=== PATIENT | male | born 1980 | race Caucasian/White ===

== ENCOUNTER 2022-07-09 12:27 | Emergency (ER) | payer MEDICAID ==
[~2022-07-09] VITALS: Ht 182.9 cm; Wt 81.6 kg
--- NOTE | 2022-07-09 14:23 | NUR ---
BLOOD DRAWN AND SENT TO LAB
[2022-07-09 14:26] LABS: BASOPHILS % (AUTO) 0.4 % (0.0-2.0); EOSINOPHILS % (AUTO) 0.4 % (0.0-6.0); HEMATOCRIT 46 % (39-51); HEMOGLOBIN 15.2 g/dL (13.5-17.5); LYMPHOCYTES # (AUTO) 2.6 K/uL (0.8-4.8); LYMPHOCYTES % (AUTO) 33.2 % (20.0-44.0); MEAN CORPUSCULAR HGB CONC 33 g/dl (31.0-36.0); MEAN CORPUSCULAR VOLUME 90 fL (80-96); MONOCYTES # (AUTO) 0.4 K/uL (0.1-1.30); NEUTROPHILS # (AUTO) 4.7 K/uL (1.8-8.9); PLATELET COUNT (AUTO) 284 K/uL (150-450); WHITE BLOOD COUNT (AUTO) 7.7 K/uL (4.3-11.0)
[2022-07-09 14:38] LABS: CALCIUM, SERUM 9.1 mg/dL (8.5-10.1); CREATININE 0.9 mg/dL (0.6-1.3)
[2022-07-09 14:44] LABS: BILIRUBIN,TOTAL 0.5 mg/dL (0.2-1.0); TOTAL PROTEIN, SERUM 7.3 g/dL (6.4-8.2)
[2022-07-09] MEDS ORDERED: IV NS 0.9% 500 ML IV ONE (15:30)
[2022-07-09] MEDS ORDERED: FAMOTIDINE/PF INJ 20 MG/2 ML VIAL IV ONE ×2 (15:30→15:33)
[2022-07-09] MEDS ORDERED: KETOROLAC TROMETHAMINE INJ 30 MG/ML VIAL IV ONE (15:30)
[2022-07-09] MEDS ORDERED: KETOROLAC TROMETHAMINE INJ 30 MG/ML VIAL ONE (15:32)
--- NOTE | 2022-07-09 16:17 | NUR ---
IV removed. Catheter intact and site benign. Pressure and 4x4 applied to site. No bleeding noted.Patient discharged to home in stable condition. Written and verbal after care instructions given. Patient verbalizes understanding of instruction.
[2022-07-09 16:18] VITALS: BP 132/68
== END 2022-07-09 16:22 | disposition home or self-care (01) ==
LOC: ER 12:34
DX: R07.9 Chest pain, unspecified (principal); R42 Dizziness and giddiness; F17.200 Nicotine dependence, unspecified, uncomplicated
CPT/HCPCS: 99285; 96374; 71045; 96375; 93005; 85025; 83690; 36415; 80053; 84484; J3490; J1885; J7040

== ENCOUNTER 2022-09-21 15:42 | Emergency (ER) | payer MEDICAID ==
[~2022-09-21] VITALS: Ht 182.9 cm; Wt 80.7 kg
[2022-09-21 15:51] VITALS: BP 133/71
[2022-09-21] MEDS ORDERED: diphenhydrAMINE HCL 25 MG CAPSULE PO ONE (16:30)
[2022-09-21] MEDS ORDERED: METOCLOPRAMIDE HCL 10 MG TABLET PO ONE (16:30)
[2022-09-21] MEDS ORDERED: ACETAMINOPHEN ES 500 MG TABLET PO ONE (16:30)
[2022-09-21] MEDS ORDERED: METO-295 PO (16:32)
[2022-09-21] MEDS ORDERED: METOCLOPRAMIDE HCL 10 MG TABLET ONE (16:42)
[2022-09-21] MEDS ORDERED: diphenhydrAMINE HCL 25 MG CAPSULE ONE (16:42)
[2022-09-21] MEDS ORDERED: ACETAMINOPHEN ES 500 MG TABLET ONE (16:42)
== END 2022-09-21 16:48 | disposition home or self-care (01) ==
LOC: ER 15:44
DX: R51.9 Headache, unspecified (principal)
CPT/HCPCS: 99284; Q0163; J8597